=== PATIENT | male | born 1985 | race Caucasian/White ===

== ENCOUNTER 2018-10-27 13:37 | Emergency (ER) | payer SELFPAY ==
[~2018-10-27] VITALS: Ht 167.6 cm; Wt 63.6 kg
[2018-10-27] MEDS ORDERED: diphenhydrAMINE 50 mg/ml inj IM ONE (13:45)
[2018-10-27] MEDS ORDERED: methylPREDNISolone sod succ 125mg/2ml vial IM ONE (13:45)
--- NOTE | 2018-10-27 14:00 | NUR ---
pt got gabriel medrol shot and became diaphoratic spo2 98% on ra.denies any other concern except perfuse diaphoratic nurse galen went to main er to inform the charge and assigned provider to move th ept to main er for continous monitoring.no sob noted at this time.
--- NOTE | 2018-10-27 14:13 | NUR ---
lucy schwartz at bedside to assess the pt nurse tobin hartman at bedside to take pt to main er.
--- NOTE | 2018-10-27 14:29 | NUR ---
pt transferred to [place] [id number]. denies diff breathing, no n/v. left hand swollen ice pack applied.
[2018-10-27] MEDS ORDERED: acetaminophen 325mg tablet PO ONE (14:35)
[2018-10-27 15:14] VITALS: BP 135/74
[2018-10-27] MEDS ORDERED: EPIN0.3P3 IM (15:29)
== END 2018-10-27 15:41 | disposition home or self-care (01) ==
LOC: ER 13:38
DX: T63.441A Toxic effect of venom of bees, accidental (unintentional), initial encounter (principal); Z79.899 Other long term (current) drug therapy; Y92.89 Other specified places as the place of occurrence of the external cause
CPT/HCPCS: 96372; 99283; J1200; J2930

== ENCOUNTER 2020-04-20 13:06 | Outpatient (CLI) | payer MEDICAID ==
[~2020-04-20 13:06] MED LIST: APIX5TAB3 PO; NO HOME MEDS
== END 2020-04-20 23:59 | disposition home or self-care (01) ==
LOC: VAS 13:06
PROVIDERS: ATTEND Internal Medicine
DX: I26.99 Other pulmonary embolism without acute cor pulmonale (principal)
CPT/HCPCS: 93970